=== PATIENT | male | born 2000 | race African-American/Black ===

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

== ENCOUNTER 2022-04-01 00:30 | Emergency (ER) | payer MEDICAID, OTHER ==
[~2022-04-01] VITALS: Ht 172.7 cm; Wt 64.0 kg
[2022-04-01] MEDS ORDERED: ONDANSETRON HCL 4MG/2ML INJ IV STA (01:35)
[2022-04-01] MEDS ORDERED: SODIUM CHLORIDE 0.9% 1,000 ML IV ONE (01:45)
[2022-04-01 02:42] LABS: BASOPHILS % 0.3 % (0.0-2.0); EOSINOPHILS % 0.1 % (0.0-5.0); HEMATOCRIT. 44.9 % (42.0-52.0); HEMOGLOBIN. 14.9 g/dL (14.0-18.0); LYMPHOCYTES % 12.9 % (20.0-50.0); MEAN CORPUSCULAR HEMOGLOBIN 28.5 pg (28.0-32.0); MEAN CORPUSCULAR VOLUME 85.9 fL (80.0-94.0); MEAN PLATELET VOLUME 7.9 fl (7.4-10.4); MONOCYTES % 6.3 % (2.0-8.0); NEUTROPHILS % 80.4 % (40.0-76.0); PLATELET 241 x1000/uL (130-400); RED BLOOD CELL COUNT 5.23 mill/uL (4.7-6.1); RED CELL DISTRIBUTION WIDTH 14.1 % (11.6-14.6)
[2022-04-01 02:45] LABS: CHLORIDE 106 mEq/L (98-107)
[2022-04-01 02:55] LABS: ETHANOL BLOOD 260 mg/dL
[2022-04-01 05:58] VITALS: BP 110/64
== END 2022-04-01 06:10 | disposition home or self-care (01) ==
LOC: ER 00:39
DX: T51.0X1A Toxic effect of ethanol, accidental (unintentional), initial encounter (principal); G92.8 Other toxic encephalopathy; Y92.89 Other specified places as the place of occurrence of the external cause
CPT/HCPCS: 36415; 80053; 80320; 83605; 83690; 85025; 96361; 96374; 99285; J2405; J7030; G0480